=== PATIENT | male | born 1990 | race African-American/Black ===

== ENCOUNTER 2020-04-25 02:12 | Emergency (ER) | payer SELFPAY ==
[~2020-04-25] VITALS: Ht 182.9 cm; Wt 113.0 kg
[2020-04-25] MEDS ORDERED: NALOXONE HCL 1 MG/ML 2ML VIAL IM ONE (03:00)
[2020-04-25] MEDS ORDERED: SODIUM CHLORIDE 0.9% 1,000 ML IV ONE (03:00)
[2020-04-25 03:47] LABS: BASOPHILS % 0.3 % (0.0-2.0); HEMATOCRIT. 45.7 % (42.0-52.0); LYMPHOCYTES % 11.3 % (20.0-50.0); MEAN CORPUSCULAR HEMOGLOBIN 29.7 pg (28.0-32.0); MEAN CORPUSCULAR VOLUME 90.6 fL (80.0-94.0); MEAN PLATELET VOLUME 7.8 fl (7.4-10.4); MONOCYTES % 4.4 % (2.0-8.0); PLATELET 192 x1000/uL (130-400); RED BLOOD CELL COUNT 5.04 mill/uL (4.7-6.1); RED CELL DISTRIBUTION WIDTH 13.3 % (11.6-14.6)
[2020-04-25 03:48] LABS: CHLORIDE 106 mEq/L (98-107)
[2020-04-25 03:52] LABS: ETHANOL BLOOD 136 mg/dL
[2020-04-25 05:02] VITALS: BP 133/79
[2020-04-25] MEDS ORDERED: NALO4SPR BOTHNSTRLS (05:15)
== END 2020-04-25 06:08 | disposition home or self-care (01) ==
LOC: ER 02:12
DX: T40.601A Poisoning by unspecified narcotics, accidental (unintentional), initial encounter (principal); R06.09 Other forms of dyspnea; F11.10 Opioid abuse, uncomplicated; F12.10 Cannabis abuse, uncomplicated; F10.10 Alcohol abuse, uncomplicated; F17.210 Nicotine dependence, cigarettes, uncomplicated; Y90.6 Blood alcohol level of 120-199 mg/100 ml; Y92.018 Other place in single-family (private) house as the place of occurrence of the external cause
CPT/HCPCS: 36415; 71045; 80053; 80307; 80320; 85025; 93005; 96360; 96372; 99284; J2310; G0480